=== PATIENT | female | born 1945 | race African-American/Black ===

== ENCOUNTER → 2018-05-20 | Outpatient (CLI) | payer OTHER, MEDICARE ==
[~2018-05-20] VITALS: Ht 167.6 cm; Wt 70.3 kg
[~2018-05-20] MED LIST: ERGOCALCIF50000 UNIT PO; TOPROL XL25 MG PO
--- NOTE | ~2018-05-20 | P ---
[facility] [place] [address] PROCEDURE REPORT Name: DONATO MCKEON Room #: REG [facility]#: [id number] Admission: 05/20/18 Attend Phys: Daniel Turner MD Discharge: Date of : 47 Report #: [id number] THIS REPORT FOR: //name// CC: Daniel Turner DATE OF SERVICE: 05/20/2018 Colonoscopy Report: BRIEF HISTORY: The patient is a 72-year-old woman with a history of colon polyps for high risk screening colonoscopy. PREOPERATIVE DIAGNOSIS: High risk screening colonoscopy. POSTOPERATIVE DIAGNOSIS: Diverticulosis coli. MEDICATIONS: Deep sedation with propofol per anesthesia. SPECIMEN: None. ESTIMATED BLOOD LOSS: None. PROCEDURE: Colonoscopy to cecum and terminal ileum. FINDINGS: Prior to propofol sedation, procedure of colonoscopy discussed with the patient as well as potential risks and its complications. She indicates she understands and desires to proceed. DESCRIPTION OF PROCEDURE: With the patient in left lateral decubitus position, digital examination was completed, which revealed no abnormalities. Subsequently, the Olympus video colonoscope was introduced in the rectum, advanced under direct vision to the cecum. Done with minimal difficulty. The cecum was identified by the ileocecal valve and the appendiceal orifice. I was able to visualize the distal segment of terminal ileum, which was inspected and noted to be unremarkable. At that point, scope was slowly withdrawn and careful circumferential views obtained. Upon slow withdrawal of the scope, the prep was excellent. The mucosa was within normal limits, normal vascular pattern, normal light reflex. As we withdrew the scope, no neoplastic lesions were seen. The mucosa was normal throughout the entire exam. There were noted to be diffuse scattered medium sized diverticula in proximal colon. There was no endoscopic evidence of diverticulitis. As we withdrew the scope, no additional abnormalities were noted until the sigmoid colon was reached and there was moderate diverticular disease. There was mild diverticular disease without endoscopic evidence of diverticulitis. The scope was withdrawn in the rectum. [facility] [address] [place] [address] PROCEDURE REPORT Name: LINDADONATO Room #: REG [facility].#: [id number] Admission: 05/20/18 Attend Phys: Daniel Turner MD Discharge: Date of : 47 Report #: [id number] Upon retroflexion, no abnormalities were seen. Scope was withdrawn. The patient tolerated the procedure well. CONDITION OF THE PATIENT UPON DISCHARGE: Following procedure, the patient was drowsy, arousable, conversant and will be discharged to home when fully ambulatory. INSTRUCTIONS TO THE PATIENT AND FAMILY AT THE TIME OF DISCHARGE: No neoplastic lesions were seen. Suggest followup colon exam in 10 years. She will return to care of Dr. Daniel Dave and return to see me as needed. Last colonoscopy was 5 years ago. Withdrawal time from the cecum was 12 minutes 47 seconds. <ELECTRONICALLY SIGNED> By: Daniel Turner MD 05/21/18 [id number] Daniel Turner MD /nt
== END | disposition home or self-care (01) ==
LOC: GI 07:46
DX: Z12.11 Encounter for screening for malignant neoplasm of colon (principal); Z86.010 Personal history of colon polyps; K57.30 Diverticulosis of large intestine without perforation or abscess without bleeding; I48.91 Unspecified atrial fibrillation; Z87.442 Personal history of urinary calculi; Z90.710 Acquired absence of both cervix and uterus; Z79.01 Long term (current) use of anticoagulants; Z79.899 Other long term (current) drug therapy; Z88.0 Allergy status to penicillin; Z88.6 Allergy status to analgesic agent
CPT/HCPCS: G0105